=== PATIENT | female | born 1940 | race Caucasian/White ===

== ENCOUNTER → 2016-12-10 | Outpatient (CLI) | payer OTHER ==
[~2016-12-10] VITALS: Ht 154.9 cm; Wt 44.5 kg
[~2016-12-10] MED LIST: AMLO2.5T PO; ATEN50TA2 PO; CLON0.5T PO; PROPOFOL 200 MG/20 ML VIAL As Ordered ONE
[2016-12-10] MEDS: NS 1,000 ML IV SCH ×2 (09:35→09:36)
--- NOTE | 2016-12-10 10:54 | ROOR ---
Patient Name: Sophia Mendez Procedure Date: 12/10/2016 10:00 AM Date of : 1940 Age: 76 Room: [facility] Gender: Female Note Status: Finalized Procedure: Colonoscopy Indications: Screening for colorectal malignant neoplasm Providers: Fady Wesley Jr, MD Referring MD: Jaymie Toribio DO Requesting Provider: Medicines: Propofol per Anesthesia Complications: No immediate complications. Procedure: Pre-Anesthesia Assessment: - Prior to the procedure, a History and Physical was performed, and patient medications and allergies were reviewed. The patient is competent. The risks and benefits of the procedure and the sedation options and risks were discussed with the patient. All questions were answered and informed consent was obtained. Patient identification and proposed procedure were verified by the physician and the nurse in the pre-procedure area and in the procedure room. Mental Status Examination: alert and oriented. Airway Examination: normal oropharyngeal airway and neck mobility. Respiratory Examination: clear to auscultation. CV Examination: normal. ASA Grade Assessment: II - A patient with mild systemic disease. After reviewing the risks and benefits, the patient was deemed in satisfactory condition to undergo the procedure. The anesthesia plan was to use moderate sedation / analgesia (conscious sedation). Immediately prior to administration of medications, the patient was re-assessed for adequacy to receive sedatives. The heart rate, respiratory rate, oxygen saturations, blood pressure, adequacy of pulmonary ventilation, and response to care were monitored throughout the procedure. The physical status of the patient was re-assessed after the procedure. The Colonoscope was introduced through the anus and advanced to the cecum, identified by appendiceal orifice and ileocecal valve. The colonoscopy was performed without difficulty. The patient tolerated the procedure well. The quality of the bowel preparation was adequate and good. Findings: The perianal and digital rectal examinations were normal. Pertinent negatives include normal sphincter tone, no palpable rectal lesions and no anal lesion or abnormality was detected. Two polyps were found in the sigmoid colon. The polyps were diminutive in size. These polyps were removed with a jumbo cold forceps. Resection and retrieval were complete. The rectum, recto-sigmoid colon, descending colon, transverse colon, ascending colon, cecum, appendiceal orifice and ileocecal valve appeared normal. Impression: - Two diminutive polyps in the sigmoid colon, removed with a jumbo cold forceps. Resected and retrieved. - The rectum, recto-sigmoid colon, descending colon, transverse colon, ascending colon, cecum, appendiceal orifice and ileocecal valve are normal. Recommendation: - Discharge patient to home (ambulatory). - Repeat colonoscopy in 5-10 years for surveillance based on pathology results. Fady Wesley MD Fady Wesley Jr, MD 12/10/2016 10:53:45 AM This report has been signed electronically. Number of Addenda: 0 Note Initiated On: 12/10/2016 10:00 AM Estimated Blood Loss: Estimated blood loss: none.
[2016-12-10 11:00] VITALS: BP 140/70
== END | disposition home or self-care (01) ==
LOC: M OPP 09:12
PROVIDERS: ATTEND Surgery
DX: Z12.11 Encounter for screening for malignant neoplasm of colon (principal); K63.5 Polyp of colon; R00.2 Palpitations; R00.8 Other abnormalities of heart beat; I10 Essential (primary) hypertension; R10.12 Left upper quadrant pain; M19.90 Unspecified osteoarthritis, unspecified site; M54.2 Cervicalgia; F41.9 Anxiety disorder, unspecified; Z85.3 Personal history of malignant neoplasm of breast; Z92.3 Personal history of irradiation; F17.210 Nicotine dependence, cigarettes, uncomplicated; Z97.0 Presence of artificial eye; Z79.899 Other long term (current) drug therapy; Z79.82 Long term (current) use of aspirin; Z80.52 Family history of malignant neoplasm of bladder; Z80.3 Family history of malignant neoplasm of breast

== ENCOUNTER → 2017-08-17 | Outpatient (CLI) | payer OTHER ==
[~2017-08-17] MED LIST changes: -PROPOFOL 200 MG/20 ML VIAL As Ordered ONE
--- NOTE | 2017-08-17 11:48 | REPMRS ---
Patient History The patient states she had a clinical breast exam in 04/2017. 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 Family history of breast cancer in 4 sisters at age 50 or over, ovarian cancer in mother at age 50 or over, and breast cancer in niece under age 50. Malignant lumpectomy of the right breast, 2010. Radiation therapy of the right breast, 2010. Took unspecified hormones for 4 years 7 months. Digital Woman Screen Mammo: August 17, 2017 - Exam #: [id number] Bilateral CC and MLO view(s) were taken. Technologist: Jessica Humphries, Technologist Prior study comparison: August 13, 2016, digital woman screen mammo performed at [facility]. August 12, 2015, digital woman screen mammo performed at [facility]. FINDINGS: There are scattered fibroglandular densities. There is a fairly symmetric fibroglandular pattern in both breasts. There has been no interval development of masses, areas of architectural distortion or clusters of microcalcifications typical of malignancy. ASSESSMENT: BI-RADS/ACR category 2 mammogram. Benign finding(s). Recommendation Routine screening mammogram of both breasts in 1 year (for women over age 40). This mammogram was interpreted with the aid of an FDA-approved computer-aided dectection system. Electronically Signed By: Kael Ramos MD 08/17/17 1435
== END ==
LOC: M WHC 10:34
PROVIDERS: ATTEND Internal Medicine Medical Oncology
DX: Z12.31 Encounter for screening mammogram for malignant neoplasm of breast (principal)

== ENCOUNTER → 2018-08-22 | Outpatient (CLI) | payer OTHER | LOC: M WHC 10:00 | DX: Z12.31 Encounter for screening mammogram for malignant neoplasm of breast (principal); Z78.0 Asymptomatic menopausal state; Z85.3 Personal history of malignant neoplasm of breast; Z92.3 Personal history of irradiation; Z80.3 Family history of malignant neoplasm of breast | CPT/HCPCS: 77067 ==

== ENCOUNTER → 2019-11-13 | Outpatient (CLI) | payer MEDICARE ==
[~2019-11-13] MED LIST changes: -AMLO2.5T PO; +AMLO2.5T3 PO; -CLON0.5T PO; +CLON0.5T2 PO; +OMEP40CA97 PO
--- NOTE | 2019-11-13 14:12 | REPMRS ---
Patient History The patient states she had a clinical breast exam in May 2019.Family history of ovarian cancer at age 50 or over in mother, breast cancer at age 50 or over in sister, breast cancer at age 50 or over in sister, breast cancer at age 50 or over in sister, breast cancer at age 50 or over in sister, breast cancer under age 50 in niece. Malignant lumpectomy of the right breast, 2010. Radiation therapy of the right breast, 2010. Took unspecified hormones for 4 years 7 months. Digital Woman Screen Mammo: November 13, 2019 - Exam #: [id number] Bilateral CC and MLO view(s) were taken. Technologist: Bryanna Wu, Technologist Prior study comparison: August 22, 2018, bilateral digital woman screen mammo performed at [facility], [place]. August 17, 2017, digital woman screen mammo performed at [facility], [place]. August 13, 2016, digital woman screen mammo performed at [facility], [place]. FINDINGS: There are scattered fibroglandular densities. There are stable post treatment changes in the right breast. There has been no change in the appearance of the mammogram from the prior studies. There is a mild amount of scattered fibroglandular density which is fairly symmetric. There is no interval development of dominant mass, architectural distortion, or grouped microcalcification suggestive of malignancy. 3-D tomosynthesis shows no additional findings. Assessment: BI-RADS/ACR category 2 mammogram. Benign Findings. Recommendation Routine screening mammogram of both breasts in 1 year (for women over age 40). This mammogram was interpreted with the aid of an FDA-approved computer-aided dectection system. Electronically Signed By: Jason Chappell MD 11/13/19 [id number]
== END ==
LOC: M WHC 12:36
PROVIDERS: ATTEND Nurse Practitioner Family
DX: Z12.31 Encounter for screening mammogram for malignant neoplasm of breast (principal); Z80.3 Family history of malignant neoplasm of breast; Z80.41 Family history of malignant neoplasm of ovary; Z92.29 Personal history of other drug therapy

== ENCOUNTER → 2020-11-15 | Outpatient (CLI) | payer MEDICARE ==
--- NOTE | 2020-11-15 13:39 | REPMRS ---
Patient History The patient states she has not had a clinical breast exam in over a year. Family history of ovarian cancer at age 50 or over in mother, breast cancer at age 50 or over in sister, breast cancer at age 50 or over in sister, breast cancer at age 50 or over in sister, breast cancer at age 50 or over in sister, breast cancer under age 50 in niece. Malignant lumpectomy of the right breast, 2010. Radiation therapy of the right breast, 2010. Took unspecified hormones for 4 years 7 months. Digital Woman Screen Mammo: November 15, 2020 - Exam #: [id number] Bilateral CC and MLO view(s) were taken. Technologist: Sharyn Be, Technologist Prior study comparison: November 13, 2019, bilateral digital woman screen mammo performed at [facility]. August 22, 2018, bilateral digital woman screen mammo performed at [facility]. August 17, 2017, digital woman screen mammo performed at [facility]. FINDINGS: The breast tissue is heterogeneously dense. This may lower the sensitivity of mammography. The Volpara volumetric breast density category is: C. There is a moderate amount of heterogeneously dense fibroglandular tissue which is fairly symmetric. There is no interval development of dominant mass, architectural distortion, or grouped microcalcification typical of malignancy. There has been no change in the appearance of the mammogram from the prior studies. 3-D tomosynthesis shows no additional findings. Assessment: BI-RADS/ACR category 1 mammogram. Negative Mammogram. Recommendation Routine screening mammogram of both breasts in 1 year (for women over age 40). This mammogram was interpreted with the aid of an FDA-approved computer-aided dectection system. Electronically Signed By: Jason Chappell MD 11/15/20 8921
== END ==
LOC: M WHC 12:53
PROVIDERS: ATTEND Internal Medicine Medical Oncology
DX: Z12.31 Encounter for screening mammogram for malignant neoplasm of breast (principal)

== ENCOUNTER → 2021-11-17 | Outpatient (CLI) | payer MEDICARE ==
[~2021-11-17] MED LIST changes: +ALBU8.5H INH; +INCR1INH INH; +OMEP40CA4 PO; -OMEP40CA97 PO
== END ==
LOC: M WHC 09:54
PROVIDERS: ATTEND Internal Medicine Medical Oncology
DX: Z12.31 Encounter for screening mammogram for malignant neoplasm of breast (principal); Z85.3 Personal history of malignant neoplasm of breast

== ENCOUNTER → 2022-11-18 | Outpatient (CLI) | payer MEDICARE | LOC: M WHC 10:28 | PROVIDERS: ATTEND Internal Medicine | DX: Z12.31 Encounter for screening mammogram for malignant neoplasm of breast (principal) ==

== ENCOUNTER → 2023-11-22 | Outpatient (CLI) | payer MEDICARE | LOC: M WHC 13:19 | PROVIDERS: ATTEND Nurse Practitioner | DX: Z12.31 Encounter for screening mammogram for malignant neoplasm of breast (principal) ==

== ENCOUNTER → 2024-07-06 | Outpatient (CLI) | payer MEDICARE | LOC: M RAD 13:51 | PROVIDERS: ATTEND Internal Medicine Pulmonary Disease | DX: J44.9 Chronic obstructive pulmonary disease, unspecified (principal); R05.9 Cough, unspecified ==

== ENCOUNTER → 2024-11-23 | Outpatient (CLI) | payer MEDICARE ==
[~2024-11-23] MED LIST changes: +LEXA5TAB13
== END ==
LOC: M WHC 12:00
PROVIDERS: ATTEND Internal Medicine Medical Oncology
DX: R92.30 Dense breasts, unspecified (principal); Z85.3 Personal history of malignant neoplasm of breast; Z12.31 Encounter for screening mammogram for malignant neoplasm of breast

== ENCOUNTER → 2025-08-29 | Outpatient (CLI) | payer MEDICARE | LOC: M WUC 12:37 | PROVIDERS: ATTEND Nurse Practitioner Family | DX: I48.0 Paroxysmal atrial fibrillation (principal) ==